=== PATIENT | male | born 1945 | race Caucasian/White ===

== ENCOUNTER 2019-03-27 07:17 | Day surgery (SDC) | payer BC, MEDICARE ==
[2019-03-26 15:06] VITALS: Ht 177.8 cm; Wt 91.0 kg
[2019-03-27] VITALS (10 sets, daily range): BP systolic 107–137; BP diastolic 64–86; PULSE 66–76; RESP 12–23
[~2019-03-27] VITALS: Ht 177.8 cm; Wt 91.0 kg
[~2019-03-27 07:17] MED LIST: ASPI-699 PO; CYCL10TA7 PO; DICL75TA2 PO; HYDR25TA6 PO; LEVO-86 PO; METO-335 PO; PANT40TA4 PO; RSV10T PO; VALS160T20 PO; VIA100 PO
[2019-03-27] MEDS ORDERED: METO-319 PO (08:38)
[2019-03-27] MEDS ORDERED: CRES20 PO (08:39)
[2019-03-27] MEDS ORDERED: VALS160T20 PO (08:39)
[2019-03-27] MEDS ORDERED: RANI300T PO (08:40)
[2019-03-27] MEDS ORDERED: CHLO25TA2 PO (08:40)
[2019-03-27] MEDS ORDERED: LEVO-86 PO (08:40)
[2019-03-27] MEDS ORDERED: ASPI81TA52 PO (08:41)
[2019-03-27] MEDS ORDERED: DICL100G37 TOP (08:41)
[2019-03-27] MEDS ORDERED: LACTATED RINGER'S 1,000 ML IV SCH (09:00)
--- NOTE | 2019-03-27 09:09 | HPN ---
Date/Time of Note Date/Time of Note DATE: 03/27/19 TIME: 09:08 Interval H&P Admission Note Pt. seen H&P reviewed: No system changes RIMA VARGAS MD March 27, 2019 09:09
--- NOTE | 2019-03-27 09:14 | SIPON ---
Date/Time of Note Date/Time of Note DATE: 03/27/19 TIME: 09:10 Operative Report Preoperative Diagnosis cervical radiculopathy Failed Percutaneous Spinal cord stimulator system Postoperative Diagnosis cervical radiculopathy Failed Percutaneous Spinal cord stimulator system Operation/Procedure Performed Percutaneous SCS taken out Surgeon see signature line apartment community assistant manager none Anesthesia: MAC Estimated blood loss: 0 - 10 ml's Transfusion Required none Specimen SCS battery and leads Grafts/Implants none Complications none RIMA VARGAS MD March 27, 2019 09:14
[2019-03-27] MEDS ORDERED: LIDOCAINE 1% (MPF) 30 ML INJ ONE (09:16)
[2019-03-27] MEDS ORDERED: BUPIVACAINE 0.25% (MPF) 30 ML INJ ONE (09:16)
--- NOTE | 2019-03-27 09:19 | OPR ---
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 2 gram of Ancef was given intraven ously prophylactically. Prior to procedure an evaluation was performed. The procedure was explained to the patient. Potential complications including , nerve damage, temporary or permanent paralysis, bleeding, infection, headache and/or other serious or life threatening compliactions were explained to the patient. No guarantee of benefits were given. The patient agreed to have the procedure and signed the consent. The patient was taken to the operating room and placed in the prone position. Standard non-invasive monitors were then applied. Confirmation of the procedure to be performed was obtained from the patient. All surgical staff involved in the procedure wore standard sterile gown, hat, mask, and gloves. The skin overlying the operative field was prepped and draped in a sterile fashion. A standard lap drape was placed over the operative field. Under flouroscopic guidance the anchors were located and an incision was made. The existing pocket for the generator was located and another incision was made. The leads were disconnected from the generator. The battery and the leads were then removed. The incisions were then closed with 3.0 vicryl, skin closed with 4.0 monocryl and covered with dermabond and protective gauze and tape. The patient tolerated the procedure well and was brought to the recovery area in awake and in hemodynamically stable condition. RIMA VARGAS MD March 27, 2019 09:19
[2019-03-27] MEDS ORDERED: PROPOFOL 40 ML ONE (09:20)
[2019-03-27] MEDS ORDERED: FENTAnyl 50 MCG/ML VIAL ONE ×2 (09:20→09:49)
[2019-03-27] MEDS ORDERED: MIDAZOLAM 1 MG/ML 2 ML INJ ONE (09:20)
[2019-03-27] MEDS ORDERED: CEFAZOLIN 1 GM INJ ONE (09:20)
[2019-03-27] MEDS ORDERED: ONDANSETRON 4 MG INJ ONE (09:34)
[2019-03-27] MEDS ORDERED: FAMOTIDINE 20 MG INJ ONE (09:34)
[2019-03-27] MEDS ORDERED: PROPOFOL 20 ML ONE (09:58)
[2019-03-27] MEDS ORDERED: ONDANSETRON 4 MG INJ IV PRN (10:30)
[2019-03-27] MEDS ORDERED: OXYCODONE/ACETAMINOPHEN (5/325) TAB PO PRN ×2 (10:30)
[2019-03-27] MEDS ORDERED: FENTAnyl 50 MCG/ML VIAL IV PRN ×3 (10:30)
[2019-03-27] MEDS ORDERED: MEPERIDINE 25 MG INJ IV PRN (10:30)
[2019-03-27] MEDS ORDERED: LABETALOL HCL 20MG INJ IV PRN (10:30)
--- NOTE | 2019-03-27 11:13 | PAC ---
Date/Time of Note Date/Time of Note DATE: 03/27/19 TIME: 11:12 Post-Anesthesia Notes Post-Anesthesia Note Last documented vital signs post 128/64 78 97% 97.7 16 Vital Signs Date Temp Pulse Resp B/P (MAP) Pulse Ox O2 O2 Flow FiO2 Time Delivery Rate 03/27/19 97.6 71 16 123/71 98 Room Air 08:02 (88) Activity: WNL Respiratory function: WNL Cardiovascular function: WNL Mental status: Baseline Pain reasonably controlled: Yes Hydration appropriate: Yes Nausea/Vomiting absent: Yes BETO WHITE March 27, 2019 11:13
--- NOTE | 2019-03-27 19:07 | RADRPT ---
Vent Rate: 65 bpm RR Interval: 920 msec CA Interval: 150 msec QRS Duration: 120 msec QT Interval: 414 msec QTC Interval: 432 msec P-R-T Dickey: 46 - -1 - -1 degrees Sinus rhythm...normal P axis, V-rate 50- 99 IVCD, consider RBBB...QRSd>120mS, terminal axis(90,270) Electronically Signed By: Nik Victor
== END 2019-03-27 11:45 | disposition home or self-care (01) ==
LOC: SDS 07:17
PROVIDERS: ATTEND Anesthesiology
DX: M54.12 Radiculopathy, cervical region (principal)
CPT/HCPCS: 63662; 71045; 72020; 80048; 85025; 88300; 93005; J0690; J2250; J3010; J2405